=== PATIENT | female | born 1930 | race Caucasian/White ===

== ENCOUNTER 2017-08-23 07:50 | Inpatient (IN) ==
[2017-08-23] MEDS ORDERED: LIDOCAINE 1% 20 ML VIAL ONE (10:50)
[2017-08-23] MEDS ORDERED: HEPARIN/NACL 0.9% 2 UNITS/ML 2,000 ML IV ONE (10:50)
[2017-08-23] MEDS ORDERED: diphenhydrAMINE CAP 25 MG CAPSULE ONE (10:58)
[2017-08-23] MEDS ORDERED: ASPIRIN 325 MG TABLET ONE (11:05)
[2017-08-23] MEDS: SODIUM CHLORIDE 0.9% 1,000 ML IV SCH (11:15)
[2017-08-23] MEDS ORDERED: MIDAZOLAM 2 MG/2 ML VIAL ONE (11:22)
[2017-08-23] MEDS ORDERED: HYDROmorphone 2 MG/1 ML VIAL ONE (11:22)
[2017-08-23] MEDS ORDERED: MAGNESIUM SULF RIDER 2 GM in PREMIX 1 EACH IV PRN (11:30)
[2017-08-23] MEDS ORDERED: POTASSIUM CHLORIDE RIDER 10 MEQ in PREMIX 1 EACH IV PRN (11:30)
[2017-08-23] MEDS ORDERED: ASPIRIN 325 MG TABLET PO ONE (11:30)
[2017-08-23] MEDS ORDERED: diphenhydrAMINE CAP 25 MG CAPSULE PO ONE (11:30)
[2017-08-23 11:36] LABS: Basophils % 0.3 % (0.0-0.8); Eosinophils # 0.1 10*3/uL (0.0-0.87); Eosinophils % 0.9 % (0.00-10.9); Hematocrit 19.6 VOL% (35.7-47.0); Immature Granulocytes % 0.6 %; Immature Granulocytes Absolute 0.05 #; Lymphocytes % 12.7 % (21.3-54.2); Mean Corpuscular HGB Conc 28.6 GM/DL (32-36); Mean Corpuscular Hemoglobin 21 PG (27-34); Mean Corpuscular Volume 72.9 FL (87-102); Mean Platelet Volume 9.6 FL (9.6-12.0); Monocytes # 0.7 10*3/uL (0.11-0.8); Monocytes % 8.8 % (1.7-12.7); Neutrophils # 5.9 10*3/uL (1.4-7.4); Neutrophils % 76.7 % (38.7-73.9); Platelet Count 400 T/CUMM (130-400); Red Blood Count 2.69 MC/CUMM (3.8-5.5); Red Cell Distribution Width 20.3 % (9.3-17.3); White Blood Count 7.7 T/CUMM (4-12)
[2017-08-23 11:40] LABS: PT Patient Result 10.7 SECS
[2017-08-23 11:41] LABS: Hemoglobin 5.6 GM/DL (12.0-16.0)
[2017-08-23] MEDS ORDERED: BIVALIRUDIN 250 MG VIAL IV ONE (11:41)
[2017-08-23 11:46] LABS: Calcium 8.3 MG/DL (8.5-10.1); Osmolality,Calculated 258.1 MOS/KG (273-304); Potassium 3.8 MMOL/L (3.5-5.1)
[2017-08-23] MEDS ORDERED: SODIUM CHLORIDE 0.9% 1,000 ML IV PRN (12:04)
[2017-08-23 12:13] LABS: Basophils % 0.3 % (0.0-0.8); Eosinophils # 0.1 10*3/uL (0.0-0.87); Eosinophils % 0.7 % (0.00-10.9); Hematocrit 20.2 VOL% (35.7-47.0); Immature Granulocytes % 0.6 %; Immature Granulocytes Absolute 0.05 #; Lymphocytes # 1.1 10*3/uL (1.4-4.0); Lymphocytes % 12.2 % (21.3-54.2); Mean Corpuscular HGB Conc 28.2 GM/DL (32-36); Mean Corpuscular Hemoglobin 21 PG (27-34); Mean Corpuscular Volume 73.5 FL (87-102); Mean Platelet Volume 9.2 FL (9.6-12.0); Monocytes # 0.7 10*3/uL (0.11-0.8); Monocytes % 8.1 % (1.7-12.7); Neutrophils # 6.7 10*3/uL (1.4-7.4); Neutrophils % 78.1 % (38.7-73.9); Platelet Count 364 T/CUMM (130-400); Red Blood Count 2.75 MC/CUMM (3.8-5.5); Red Cell Distribution Width 20.3 % (9.3-17.3); White Blood Count 8.6 T/CUMM (4-12)
[2017-08-23 12:16] LABS: Hemoglobin 5.7 GM/DL (12.0-16.0)
[2017-08-23 12:19] LABS: Anisocytosis 1+; Hypochromasia 2+
[2017-08-23 12:20] LABS: Ovalocytes Slight; Target Cells Few
[2017-08-23 12:21] LABS: Microcytosis 1+; Platelet Estimate Increased
[2017-08-23] MEDS ORDERED: ONDANSETRON 4 MG/2 ML VIAL IV PRN (12:40)
[2017-08-23] MEDS ORDERED: NITROGLYCERIN SL 0.4 MG TABLET SL PRN (12:43)
[2017-08-23] MEDS: PANTOPRAZOLE 40 MG VIAL IV SCH (16:32)
[2017-08-23 17:00] LABS: Apearance,Urine CLOUDY (Clear); Bilirubin,Urine Negative (Negative); Blood, Urine Small mg/dL (Negative); Glucose,Urine (UA) Negative (Negative); Ketones,Urine 5 mg/dL (Negative); Nitrite,Urine Positive (Negative); Protein,Urine 100 MG/DL; Urine Color Yellow (Yellow); Urine Specific Gravity 1.033 (1.001-1.035); Urine Urobilinogen < 2.0 EU/DL (0.2-1.0); WBC,Urine 338 /HPF (0-6)
[2017-08-23 20:58] LABS: Hematocrit 28.5 VOL% (35.7-47.0); Hemoglobin 8.6 GM/DL (12.0-16.0)
[2017-08-24] MEDS: SODIUM CHLORIDE 0.9% 1,000 ML IV SCH ×2 (04:55→05:25)
[2017-08-24 05:24] LABS: Hematocrit 36.4 VOL% (35.7-47.0); Hemoglobin 11.9 GM/DL (12.0-16.0); Mean Corpuscular HGB Conc 32.7 GM/DL (32-36); Mean Corpuscular Hemoglobin 26 PG (27-34); Mean Corpuscular Volume 78.3 FL (87-102); Mean Platelet Volume 9.7 FL (9.6-12.0); NRBC # 0.17 10*3/uL; Platelet Count 265 T/CUMM (130-400); Red Blood Count 4.65 MC/CUMM (3.8-5.5); Red Cell Distribution Width 19.9 % (9.3-17.3); White Blood Count 9.9 T/CUMM (4-12)
[2017-08-24 07:11] LABS: Osmolality,Calculated 261.7 MOS/KG (273-304); Potassium 3.6 MMOL/L (3.5-5.1)
[2017-08-24] MEDS ORDERED: PRAVASTATIN 40 MG TABLET PO SCH (09:00)
[2017-08-24] MEDS ORDERED: LOSARTAN 50 MG TABLET PO SCH (09:00)
[2017-08-24] MEDS ORDERED: COBAMAMIDE SL SCH (09:00)
[2017-08-24] MEDS ORDERED: CYANOCOBALAMIN SL SCH (09:00)
[2017-08-24] MEDS: PANTOPRAZOLE 40 MG VIAL IV SCH (09:07)
[2017-08-24] MEDS ORDERED: hydrALAZINE 20 MG/1 ML VIAL IV PRN (09:07)
[2017-08-24] MEDS ORDERED: PROPOFOL 200 MG/20 ML VIAL IV ONE ×2 (12:36→13:57)
[2017-08-24] MEDS ORDERED: LIDOCAINE 2% 5 ML VIAL ONE (13:57)
[2017-08-24] MEDS: ZINC PO SCH (15:04)
[2017-08-24] MEDS: VIT C PO SCH (15:04)
[2017-08-24] MEDS: VIT A PO SCH (15:04)
[2017-08-24] MEDS: SACCHAROMYCES BOULARDII 250 MG PO SCH (15:04)
[2017-08-24] MEDS: COPPER PO SCH (15:04)
[2017-08-24] MEDS: VIT E PO SCH (15:04)
[2017-08-24] MEDS: clonazePAM 0.5 MG TABLET PO SCH (16:21)
[2017-08-24] MEDS: LOSARTAN 50 MG TABLET PO SCH (16:29)
[2017-08-24] MEDS: FUROSEMIDE 20 MG TABLET PO SCH (16:30)
[2017-08-24] MEDS: ASCORBIC ACID 500 MG TABLET PO SCH (16:31)
[2017-08-24] MEDS: ISOSORBIDE MONONITRATE 30 MG TABLET PO SCH (16:32)
[2017-08-24] MEDS: COENZYME Q10 100 MG CAPSULE PO SCH (16:33)
[2017-08-24] MEDS: ATORVASTATIN 80 MG TABLET PO SCH (20:32)
[2017-08-25] MEDS: ISOSORBIDE MONONITRATE 30 MG TABLET PO SCH (08:53)
[2017-08-25] MEDS: COENZYME Q10 100 MG CAPSULE PO SCH (08:53)
[2017-08-25] MEDS: ASPIRIN EC 81 MG TABLET PO SCH (08:53)
[2017-08-25] MEDS: LOSARTAN 50 MG TABLET PO SCH (08:53)
[2017-08-25] MEDS: clonazePAM 0.5 MG TABLET PO SCH (08:53)
[2017-08-25] MEDS: CLOPIDOGREL 75 MG TABLET PO SCH (08:54)
[2017-08-25] MEDS: PANTOPRAZOLE 40 MG VIAL IV SCH (08:54)
[2017-08-25] MEDS: FUROSEMIDE 20 MG TABLET PO SCH (08:54)
[2017-08-25] MEDS: ASCORBIC ACID 500 MG TABLET PO SCH (08:54)
[2017-08-25 09:01] LABS: Basophils % 0.3 % (0.0-0.8); Eosinophils # 0.1 10*3/uL (0.0-0.87); Eosinophils % 1.1 % (0.00-10.9); Hematocrit 34.4 VOL% (35.7-47.0); Immature Granulocytes % 0.4 %; Immature Granulocytes Absolute 0.04 #; Lymphocytes # 1.1 10*3/uL (1.4-4.0); Lymphocytes % 10.2 % (21.3-54.2); Mean Corpuscular Hemoglobin 25 PG (27-34); Mean Corpuscular Volume 79.3 FL (87-102); Mean Platelet Volume 9.2 FL (9.6-12.0); Monocytes # 0.8 10*3/uL (0.11-0.8); Monocytes % 8.1 % (1.7-12.7); Neutrophils # 8.3 10*3/uL (1.4-7.4); Neutrophils % 79.9 % (38.7-73.9); Platelet Count 294 T/CUMM (130-400); Red Blood Count 4.34 MC/CUMM (3.8-5.5); Red Cell Distribution Width 21.1 % (9.3-17.3); White Blood Count 10.3 T/CUMM (4-12)
[2017-08-25 09:25] LABS: Calcium 7.9 MG/DL (8.5-10.1); Osmolality,Calculated 266.2 MOS/KG (273-304); Potassium 3.4 MMOL/L (3.5-5.1)
[2017-08-25] MEDS: CIPROFLOXACIN 250 MG TABLET PO SCH ×2 (10:44→22:13)
[2017-08-25] MEDS: MUPIROCIN 2% OINT 22 GM TUBE TOP SCH ×3 (15:43→22:13)
[2017-08-25] MEDS: ATORVASTATIN 80 MG TABLET PO SCH (22:13)
[2017-08-26 04:13] LABS: Calcium 8.1 MG/DL (8.5-10.1); Potassium 3.4 MMOL/L (3.5-5.1)
[2017-08-26 04:21] LABS: Basophils % 0.6 % (0.0-0.8); Eosinophils # 0.2 10*3/uL (0.0-0.87); Eosinophils % 3.2 % (0.00-10.9); Hematocrit 31.1 VOL% (35.7-47.0); Hemoglobin 9.8 GM/DL (12.0-16.0); Immature Granulocytes % 0.3 %; Immature Granulocytes Absolute 0.02 #; Lymphocytes # 1.2 10*3/uL (1.4-4.0); Lymphocytes % 16.7 % (21.3-54.2); Mean Corpuscular HGB Conc 31.5 GM/DL (32-36); Mean Corpuscular Hemoglobin 25 PG (27-34); Mean Corpuscular Volume 78.7 FL (87-102); Monocytes # 0.7 10*3/uL (0.11-0.8); Monocytes % 10.2 % (1.7-12.7); Platelet Count 281 T/CUMM (130-400); Red Blood Count 3.95 MC/CUMM (3.8-5.5); Red Cell Distribution Width 21.5 % (9.3-17.3); White Blood Count 7.3 T/CUMM (4-12)
[2017-08-26] MEDS: LOSARTAN 50 MG TABLET PO SCH (09:09)
[2017-08-26] MEDS: ISOSORBIDE MONONITRATE 30 MG TABLET PO SCH (09:10)
[2017-08-26] MEDS: ASPIRIN EC 81 MG TABLET PO SCH (09:10)
[2017-08-26] MEDS: COENZYME Q10 100 MG CAPSULE PO SCH (09:10)
[2017-08-26] MEDS: CIPROFLOXACIN 250 MG TABLET PO SCH ×2 (09:10→21:16)
[2017-08-26] MEDS: CLOPIDOGREL 75 MG TABLET PO SCH (09:10)
[2017-08-26] MEDS: PANTOPRAZOLE 40 MG VIAL IV SCH (09:10)
[2017-08-26] MEDS: FUROSEMIDE 20 MG TABLET PO SCH (09:10)
[2017-08-26] MEDS: clonazePAM 0.5 MG TABLET PO SCH (09:10)
[2017-08-26] MEDS: ASCORBIC ACID 500 MG TABLET PO SCH (09:10)
[2017-08-26] MEDS: MUPIROCIN 2% OINT 22 GM TUBE TOP SCH ×3 (09:13→21:17)
[2017-08-26] MEDS: COPPER PO SCH (11:48)
[2017-08-26] MEDS: VIT A PO SCH (11:48)
[2017-08-26] MEDS: VIT E PO SCH (11:48)
[2017-08-26] MEDS: ZINC PO SCH (11:48)
[2017-08-26] MEDS: VIT C PO SCH (11:48)
[2017-08-26] MEDS: SACCHAROMYCES BOULARDII 250 MG PO SCH (11:48)
[2017-08-26] MEDS: POTASSIUM CHLORIDE 20 MEQ TABLET PO SCH ×2 (11:56→21:16)
[2017-08-26] MEDS: ATORVASTATIN 80 MG TABLET PO SCH (21:16)
[2017-08-27 06:23] LABS: Basophils % 0.6 % (0.0-0.8); Eosinophils # 0.4 10*3/uL (0.0-0.87); Eosinophils % 5.1 % (0.00-10.9); Hematocrit 31.4 VOL% (35.7-47.0); Hemoglobin 9.7 GM/DL (12.0-16.0); Immature Granulocytes % 0.3 %; Immature Granulocytes Absolute 0.02 #; Lymphocytes % 15.3 % (21.3-54.2); Mean Corpuscular HGB Conc 30.9 GM/DL (32-36); Mean Corpuscular Hemoglobin 25 PG (27-34); Mean Corpuscular Volume 80.1 FL (87-102); Mean Platelet Volume 9.7 FL (9.6-12.0); Monocytes # 0.7 10*3/uL (0.11-0.8); Monocytes % 10.4 % (1.7-12.7); Neutrophils # 4.7 10*3/uL (1.4-7.4); Neutrophils % 68.3 % (38.7-73.9); Platelet Count 276 T/CUMM (130-400); Red Blood Count 3.92 MC/CUMM (3.8-5.5); Red Cell Distribution Width 21.8 % (9.3-17.3); White Blood Count 6.8 T/CUMM (4-12)
[2017-08-27 06:48] LABS: Calcium 8.2 MG/DL (8.5-10.1); Osmolality,Calculated 271.1 MOS/KG (273-304); Potassium 3.9 MMOL/L (3.5-5.1)
[2017-08-27] MEDS: ISOSORBIDE MONONITRATE 30 MG TABLET PO SCH (08:35)
[2017-08-27] MEDS: FUROSEMIDE 20 MG TABLET PO SCH (08:35)
[2017-08-27] MEDS: clonazePAM 0.5 MG TABLET PO SCH (08:35)
[2017-08-27] MEDS: POTASSIUM CHLORIDE 20 MEQ TABLET PO SCH ×2 (08:35→22:24)
[2017-08-27] MEDS: MUPIROCIN 2% OINT 22 GM TUBE TOP SCH ×2 (08:35→14:15)
[2017-08-27] MEDS: CIPROFLOXACIN 250 MG TABLET PO SCH ×2 (08:35→22:25)
[2017-08-27] MEDS: ASCORBIC ACID 500 MG TABLET PO SCH (08:35)
[2017-08-27] MEDS: LOSARTAN 50 MG TABLET PO SCH (08:35)
[2017-08-27] MEDS: CLOPIDOGREL 75 MG TABLET PO SCH (08:35)
[2017-08-27] MEDS: VIT E PO SCH (08:36)
[2017-08-27] MEDS: VIT A PO SCH (08:36)
[2017-08-27] MEDS: ZINC PO SCH (08:36)
[2017-08-27] MEDS: PANTOPRAZOLE 40 MG VIAL IV SCH (08:36)
[2017-08-27] MEDS: SACCHAROMYCES BOULARDII 250 MG PO SCH (08:36)
[2017-08-27] MEDS: VIT C PO SCH (08:36)
[2017-08-27] MEDS: ASPIRIN EC 81 MG TABLET PO SCH (08:36)
[2017-08-27] MEDS: COPPER PO SCH (08:36)
[2017-08-27] MEDS: COENZYME Q10 100 MG CAPSULE PO SCH (08:36)
[2017-08-27] MEDS ORDERED: MAGNESIUM SULF RIDER 2 GM in PREMIX 1 EACH IV PRN (17:18)
[2017-08-27] MEDS ORDERED: DIAZEPAM 5 MG TABLET PO ONE (17:18)
[2017-08-27] MEDS ORDERED: diphenhydrAMINE CAP 25 MG CAPSULE PO ONE (17:18)
[2017-08-27] MEDS ORDERED: POTASSIUM CHLORIDE RIDER 10 MEQ in PREMIX 1 EACH IV PRN (17:18)
[2017-08-27] MEDS: ATORVASTATIN 80 MG TABLET PO SCH (22:25)
[2017-08-27] MEDS: CARVEDILOL 3.125 MG TABLET PO SCH (22:31)
[2017-08-28 04:42] LABS: Basophils % 0.8 % (0.0-0.8); Eosinophils # 0.4 10*3/uL (0.0-0.87); Eosinophils % 7.4 % (0.00-10.9); Hematocrit 29.8 VOL% (35.7-47.0); Immature Granulocytes % 0.2 %; Immature Granulocytes Absolute 0.01 #; Lymphocytes % 18.3 % (21.3-54.2); Mean Corpuscular HGB Conc 30.2 GM/DL (32-36); Mean Corpuscular Hemoglobin 25 PG (27-34); Mean Corpuscular Volume 83.5 FL (87-102); Mean Platelet Volume 9.8 FL (9.6-12.0); Monocytes # 0.6 10*3/uL (0.11-0.8); Monocytes % 10.9 % (1.7-12.7); Neutrophils # 3.3 10*3/uL (1.4-7.4); Neutrophils % 62.4 % (38.7-73.9); Platelet Count 241 T/CUMM (130-400); Red Blood Count 3.57 MC/CUMM (3.8-5.5); Red Cell Distribution Width 21.7 % (9.3-17.3); White Blood Count 5.3 T/CUMM (4-12)
[2017-08-28 05:15] LABS: Calcium 7.8 MG/DL (8.5-10.1); Osmolality,Calculated 272.1 MOS/KG (273-304); Potassium 4.4 MMOL/L (3.5-5.1)
[2017-08-28] MEDS: MUPIROCIN 2% OINT 22 GM TUBE TOP SCH ×3 (05:32→15:15)
[2017-08-28] MEDS: SODIUM CHLORIDE 0.45% 1,000 ML IV SCH ×2 (07:35→17:41)
[2017-08-28] MEDS ORDERED: DIAZEPAM 5 MG TABLET ONE ×2 (08:01→08:40)
[2017-08-28] MEDS ORDERED: diphenhydrAMINE CAP 25 MG CAPSULE ONE (08:02)
[2017-08-28] MEDS: ASPIRIN EC 81 MG TABLET PO SCH (08:38)
[2017-08-28] MEDS: ISOSORBIDE MONONITRATE 30 MG TABLET PO SCH (08:38)
[2017-08-28] MEDS: CLOPIDOGREL 75 MG TABLET PO SCH (08:39)
[2017-08-28] MEDS: CARVEDILOL 3.125 MG TABLET PO SCH ×2 (08:39→21:23)
[2017-08-28] MEDS ORDERED: diphenhydrAMINE CAP 50 MG CAPSULE ONE (08:40)
[2017-08-28] MEDS: PANTOPRAZOLE 40 MG VIAL IV SCH (08:44)
[2017-08-28] MEDS ORDERED: LIDOCAINE 1% 20 ML VIAL ONE (09:46)
[2017-08-28] MEDS ORDERED: HEPARIN/NACL 0.9% 2 UNITS/ML 2,000 ML IV ONE (09:46)
[2017-08-28] MEDS ORDERED: HYDROmorphone 2 MG/1 ML VIAL ONE (10:12)
[2017-08-28] MEDS ORDERED: MIDAZOLAM 2 MG/2 ML VIAL ONE (10:13)
[2017-08-28] MEDS ORDERED: BIVALIRUDIN 250 MG VIAL IV ONE (10:20)
[2017-08-28] MEDS: clonazePAM 0.5 MG TABLET PO SCH (15:12)
[2017-08-28] MEDS: POTASSIUM CHLORIDE 20 MEQ TABLET PO SCH ×2 (15:12→21:24)
[2017-08-28] MEDS: ASCORBIC ACID 500 MG TABLET PO SCH (15:12)
[2017-08-28] MEDS: FUROSEMIDE 20 MG TABLET PO SCH (15:12)
[2017-08-28] MEDS: COENZYME Q10 100 MG CAPSULE PO SCH (15:13)
[2017-08-28] MEDS: CIPROFLOXACIN 250 MG TABLET PO SCH ×2 (15:13→21:23)
[2017-08-28] MEDS: ATORVASTATIN 80 MG TABLET PO SCH (21:23)
[2017-08-29] MEDS: MUPIROCIN 2% OINT 22 GM TUBE TOP SCH ×4 (00:57→21:54)
[2017-08-29] MEDS: SODIUM CHLORIDE 0.45% 1,000 ML IV SCH ×3 (00:58→19:48)
[2017-08-29 05:05] LABS: Basophils # 0.1 10*3/uL (0.0-0.2); Basophils % 1.1 % (0.0-0.8); Eosinophils # 0.5 10*3/uL (0.0-0.87); Eosinophils % 6.6 % (0.00-10.9); Hematocrit 33.9 VOL% (35.7-47.0); Hemoglobin 10.3 GM/DL (12.0-16.0); Immature Granulocytes % 0.3 %; Immature Granulocytes Absolute 0.02 #; Lymphocytes # 1.4 10*3/uL (1.4-4.0); Lymphocytes % 18.4 % (21.3-54.2); Mean Corpuscular HGB Conc 30.4 GM/DL (32-36); Mean Corpuscular Hemoglobin 25 PG (27-34); Mean Corpuscular Volume 83.3 FL (87-102); Mean Platelet Volume 10.3 FL (9.6-12.0); Monocytes # 0.8 10*3/uL (0.11-0.8); Monocytes % 10.7 % (1.7-12.7); Neutrophils # 4.8 10*3/uL (1.4-7.4); Neutrophils % 62.9 % (38.7-73.9); Platelet Count 296 T/CUMM (130-400); Red Blood Count 4.07 MC/CUMM (3.8-5.5); Red Cell Distribution Width 21.7 % (9.3-17.3); White Blood Count 7.6 T/CUMM (4-12)
[2017-08-29 05:24] LABS: Calcium 7.9 MG/DL (8.5-10.1); Osmolality,Calculated 261.8 MOS/KG (273-304); Potassium 4.8 MMOL/L (3.5-5.1)
[2017-08-29 05:25] LABS: CKMB % 11.8 %
[2017-08-29 05:26] LABS: Troponin I Only 3.13 NG/ML (0.00-0.045)
[2017-08-29] MEDS: CLOPIDOGREL 75 MG TABLET PO SCH (09:18)
[2017-08-29] MEDS: CARVEDILOL 3.125 MG TABLET PO SCH ×2 (09:18→21:54)
[2017-08-29] MEDS: FUROSEMIDE 20 MG TABLET PO SCH (09:18)
[2017-08-29] MEDS: COENZYME Q10 100 MG CAPSULE PO SCH (09:18)
[2017-08-29] MEDS: POTASSIUM CHLORIDE 20 MEQ TABLET PO SCH ×2 (09:18→21:54)
[2017-08-29] MEDS: CIPROFLOXACIN 250 MG TABLET PO SCH ×2 (09:18→21:54)
[2017-08-29] MEDS: clonazePAM 0.5 MG TABLET PO SCH (09:18)
[2017-08-29] MEDS: ASCORBIC ACID 500 MG TABLET PO SCH (09:18)
[2017-08-29] MEDS: PANTOPRAZOLE 40 MG VIAL IV SCH (09:19)
[2017-08-29] MEDS: ASPIRIN EC 81 MG TABLET PO SCH (09:19)
[2017-08-29] MEDS: ISOSORBIDE MONONITRATE 30 MG TABLET PO SCH (09:25)
[2017-08-29] MEDS: LOSARTAN 50 MG TABLET PO SCH (09:25)
[2017-08-29] MEDS: ATORVASTATIN 80 MG TABLET PO SCH (21:54)
[2017-08-30 06:13] LABS: Basophils % 0.7 % (0.0-0.8); Eosinophils # 0.4 10*3/uL (0.0-0.87); Eosinophils % 6.2 % (0.00-10.9); Hematocrit 27.5 VOL% (35.7-47.0); Hemoglobin 8.5 GM/DL (12.0-16.0); Immature Granulocytes % 0.3 %; Immature Granulocytes Absolute 0.02 #; Lymphocytes % 16.2 % (21.3-54.2); Mean Corpuscular HGB Conc 30.9 GM/DL (32-36); Mean Corpuscular Hemoglobin 25 PG (27-34); Mean Corpuscular Volume 81.4 FL (87-102); Mean Platelet Volume 10.4 FL (9.6-12.0); Monocytes # 0.9 10*3/uL (0.11-0.8); Monocytes % 13.9 % (1.7-12.7); Neutrophils # 3.8 10*3/uL (1.4-7.4); Neutrophils % 62.7 % (38.7-73.9); Platelet Count 253 T/CUMM (130-400); Red Blood Count 3.38 MC/CUMM (3.8-5.5); Red Cell Distribution Width 21.6 % (9.3-17.3); White Blood Count 6.1 T/CUMM (4-12)
[2017-08-30 06:28] LABS: Calcium 7.7 MG/DL (8.5-10.1); Osmolality,Calculated 257.2 MOS/KG (273-304); Potassium 4.6 MMOL/L (3.5-5.1)
[2017-08-30 06:32] LABS: Hypochromasia 1+
[2017-08-30 06:33] LABS: Microcytosis 1+; Ovalocytes Slight; Platelet Estimate Normal
[2017-08-30] MEDS: LOSARTAN 50 MG TABLET PO SCH (09:04)
[2017-08-30] MEDS: POTASSIUM CHLORIDE 20 MEQ TABLET PO SCH ×2 (09:05→20:53)
[2017-08-30] MEDS: ASPIRIN EC 81 MG TABLET PO SCH (09:05)
[2017-08-30] MEDS: clonazePAM 0.5 MG TABLET PO SCH (09:05)
[2017-08-30] MEDS: CARVEDILOL 3.125 MG TABLET PO SCH ×2 (09:05→20:53)
[2017-08-30] MEDS: FUROSEMIDE 20 MG TABLET PO SCH (09:05)
[2017-08-30] MEDS: MUPIROCIN 2% OINT 22 GM TUBE TOP SCH ×3 (09:05→17:47)
[2017-08-30] MEDS: PANTOPRAZOLE 40 MG VIAL IV SCH (09:05)
[2017-08-30] MEDS: COENZYME Q10 100 MG CAPSULE PO SCH (09:05)
[2017-08-30] MEDS: ASCORBIC ACID 500 MG TABLET PO SCH (09:05)
[2017-08-30] MEDS: CLOPIDOGREL 75 MG TABLET PO SCH (09:05)
[2017-08-30] MEDS: CIPROFLOXACIN 250 MG TABLET PO SCH ×2 (09:05→20:53)
[2017-08-30] MEDS: ISOSORBIDE MONONITRATE 30 MG TABLET PO SCH (09:05)
[2017-08-30 19:46] LABS: Basophils % 0.6 % (0.0-0.8); Eosinophils # 0.4 10*3/uL (0.0-0.87); Eosinophils % 5.8 % (0.00-10.9); Hematocrit 27.1 VOL% (35.7-47.0); Hemoglobin 8.1 GM/DL (12.0-16.0); Immature Granulocytes % 0.3 %; Immature Granulocytes Absolute 0.02 #; Lymphocytes % 15.6 % (21.3-54.2); Mean Corpuscular HGB Conc 29.9 GM/DL (32-36); Mean Corpuscular Hemoglobin 25 PG (27-34); Mean Corpuscular Volume 83.6 FL (87-102); Monocytes # 0.9 10*3/uL (0.11-0.8); Monocytes % 14.5 % (1.7-12.7); Neutrophils # 3.9 10*3/uL (1.4-7.4); Neutrophils % 63.2 % (38.7-73.9); Platelet Count 260 T/CUMM (130-400); Red Blood Count 3.24 MC/CUMM (3.8-5.5); Red Cell Distribution Width 21.4 % (9.3-17.3); White Blood Count 6.2 T/CUMM (4-12)
[2017-08-30] MEDS: ATORVASTATIN 80 MG TABLET PO SCH (20:53)
[2017-08-30] MEDS: PANTOPRAZOLE 40 MG TABLET PO SCH (20:53)
[2017-08-31 00:10] LABS: Calcium 7.2 MG/DL (8.5-10.1); Osmolality,Calculated 262.9 MOS/KG (273-304); Potassium 4.6 MMOL/L (3.5-5.1)
[2017-08-31] MEDS ORDERED: SODIUM CHLORIDE 0.9% 1,000 ML IV SCH (00:30)
[2017-08-31 02:46] LABS: Hematocrit 26.4 VOL% (35.7-47.0); Hemoglobin 8.1 GM/DL (12.0-16.0)
[2017-08-31 05:35] LABS: Basophils % 0.7 % (0.0-0.8); Eosinophils # 0.3 10*3/uL (0.0-0.87); Eosinophils % 5.2 % (0.00-10.9); Hematocrit 25.5 VOL% (35.7-47.0); Immature Granulocytes % 0.3 %; Immature Granulocytes Absolute 0.02 #; Lymphocytes % 17.6 % (21.3-54.2); Mean Corpuscular HGB Conc 31.4 GM/DL (32-36); Mean Corpuscular Hemoglobin 25 PG (27-34); Mean Corpuscular Volume 80.7 FL (87-102); Monocytes % 17.1 % (1.7-12.7); Neutrophils # 3.4 10*3/uL (1.4-7.4); Neutrophils % 59.1 % (38.7-73.9); Platelet Count 267 T/CUMM (130-400); Red Blood Count 3.16 MC/CUMM (3.8-5.5); Red Cell Distribution Width 21.5 % (9.3-17.3); White Blood Count 5.8 T/CUMM (4-12)
[2017-08-31 05:59] LABS: Eosinophils 6 % (0-10); Lymphocytes 15 % (20-55); Segmented Neutrophils 69 % (50-85); Total Cells Counted 100
[2017-08-31 06:00] LABS: Hypochromasia 2+; Microcytosis 2+
[2017-08-31] MEDS ORDERED: FAMOTIDINE 20 MG TABLET PO ONE (06:00)
[2017-08-31 06:01] LABS: Elliptocytes Few; Platelet Estimate Normal
[2017-08-31 06:08] LABS: Calcium 7.5 MG/DL (8.5-10.1); Osmolality,Calculated 263.8 MOS/KG (273-304); Potassium 4.6 MMOL/L (3.5-5.1)
[2017-08-31] MEDS ORDERED: HEPARIN 5,000 UNIT/1 ML VIAL ONE (06:22)
[2017-08-31] MEDS ORDERED: TISSUE ADHESIVE 1 EACH APPLICATOR TOP ONE ×2 (06:22→11:06)
[2017-08-31] MEDS ORDERED: LIDOCAINE 1% 5 ML VIAL ONE (06:22)
[2017-08-31] MEDS ORDERED: METOCLOPRAMIDE 10 MG/2 ML VIAL IV ONE (07:57)
[2017-08-31] MEDS ORDERED: VANCOMYCIN INJ 500 MG in SODIUM CHLORIDE 0.9% 100 ML IV ONE (08:18)
[2017-08-31] MEDS ORDERED: HYDROmorphone 2 MG/1 ML VIAL IV PRN ×2 (11:28)
[2017-08-31] MEDS ORDERED: oxyCODONE/ACETAMINOPHEN 5-325 MG TABLET PO PRN ×2 (11:28)
[2017-08-31] MEDS ORDERED: GLUCAGON 1 MG VIAL IM PRN (11:28)
[2017-08-31] MEDS ORDERED: ONDANSETRON 4 MG/2 ML VIAL IV PRN (11:28)
[2017-08-31] MEDS ORDERED: DEXTROSE 50% 25 GM/50 ML VIAL IV PRN (11:28)
[2017-08-31] MEDS ORDERED: NALOXONE 0.4 MG/ML VIAL IV PRN (11:28)
[2017-08-31] MEDS ORDERED: PROMETHAZINE 25 MG/1 ML VIAL IM PRN (11:28)
[2017-08-31] MEDS ORDERED: PHENYLEPHRINE DRIP 40 MG/250 ML PREMIX IV SCH (11:30)
[2017-08-31] MEDS ORDERED: NITROPRUSSIDE 100 MG in DEXTROSE 5% 250 ML IV SCH (11:30)
[2017-08-31] MEDS ORDERED: fentaNYL 100 MCG/2 ML VIAL ONE (12:36)
[2017-08-31] MEDS ORDERED: SEVOFLURANE 1 UNIT/15 MINUTE INH ONE (12:37)
[2017-08-31] MEDS ORDERED: ROCURONIUM 100 MG/10 ML VIAL IV ONE (12:39)
[2017-08-31] MEDS ORDERED: NEOSTIGMINE 10 MG/10 ML VIAL ONE (12:39)
[2017-08-31] MEDS ORDERED: SODIUM CHLORIDE 0.9% 250 ML IV ONE (12:39)
[2017-08-31] MEDS ORDERED: ONDANSETRON 4 MG/2 ML VIAL ONE (12:39)
[2017-08-31] MEDS ORDERED: GLYCOPYRROLATE 0.4 MG/2 ML VIAL ONE (12:39)
[2017-08-31] MEDS ORDERED: ETOMIDATE 40 MG/20 ML VIAL IV ONE (12:39)
[2017-08-31] MEDS ORDERED: SODIUM CHLORIDE 0.9% 1,000 ML IV ONE (12:39)
[2017-08-31] MEDS ORDERED: PHENYLEPHRINE 1 MG/10 ML SYRINGE IV ONE (12:39)
[2017-08-31] MEDS ORDERED: ACETAMINOPHEN 1,000 MG/100 ML VIAL IV ONE (12:39)
[2017-08-31] MEDS ORDERED: PHENYLEPHRINE 10 MG/1 ML VIAL IV ONE (12:39)
[2017-08-31] MEDS ORDERED: HEPARIN 10,000 UNIT/10 ML VIAL ONE (12:40)
[2017-08-31] MEDS ORDERED: PROTAMINE SULFATE 50 MG/5 ML VIAL IV ONE (12:40)
[2017-08-31] MEDS ORDERED: HEPARIN/NACL 0.9% 2 UNITS/ML 500 ML IV ONE (12:40)
[2017-08-31] MEDS: CIPROFLOXACIN 250 MG TABLET PO SCH ×2 (13:38→21:17)
[2017-08-31] MEDS: COENZYME Q10 100 MG CAPSULE PO SCH (13:38)
[2017-08-31] MEDS: MUPIROCIN 2% OINT 22 GM TUBE TOP SCH ×3 (13:38→21:17)
[2017-08-31] MEDS: ASPIRIN EC 81 MG TABLET PO SCH (13:38)
[2017-08-31] MEDS: CARVEDILOL 3.125 MG TABLET PO SCH ×2 (13:38→21:17)
[2017-08-31] MEDS: FUROSEMIDE 20 MG TABLET PO SCH (13:39)
[2017-08-31] MEDS: ISOSORBIDE MONONITRATE 30 MG TABLET PO SCH (13:39)
[2017-08-31] MEDS: clonazePAM 0.5 MG TABLET PO SCH (13:39)
[2017-08-31] MEDS: PANTOPRAZOLE 40 MG TABLET PO SCH ×2 (13:39→21:17)
[2017-08-31] MEDS: POTASSIUM CHLORIDE 20 MEQ TABLET PO SCH ×2 (13:39→21:17)
[2017-08-31] MEDS: CLOPIDOGREL 75 MG TABLET PO SCH (13:39)
[2017-08-31] MEDS: LOSARTAN 50 MG TABLET PO SCH (13:39)
[2017-08-31] MEDS: ASCORBIC ACID 500 MG TABLET PO SCH (13:40)
[2017-08-31] MEDS: LACTATED RINGERS 1,000 ML IV SCH ×2 (13:59→15:01)
[2017-08-31] MEDS ORDERED: LACTATED RINGERS 1,000 ML IV SCH (15:00)
[2017-08-31] MEDS: ATORVASTATIN 80 MG TABLET PO SCH (21:17)
[2017-09-01 03:55] LABS: Basophils % 0.5 % (0.0-0.8); Eosinophils # 0.2 10*3/uL (0.0-0.87); Eosinophils % 2.2 % (0.00-10.9); Immature Granulocytes % 0.4 %; Immature Granulocytes Absolute 0.03 #; Lymphocytes # 0.8 10*3/uL (1.4-4.0); Lymphocytes % 9.1 % (21.3-54.2); Mean Corpuscular Hemoglobin 26 PG (27-34); Mean Platelet Volume 9.9 FL (9.6-12.0); Monocytes # 0.9 10*3/uL (0.11-0.8); Monocytes % 10.4 % (1.7-12.7); Neutrophils # 6.6 10*3/uL (1.4-7.4); Neutrophils % 77.4 % (38.7-73.9); Platelet Count 263 T/CUMM (130-400); Red Blood Count 3.41 MC/CUMM (3.8-5.5); Red Cell Distribution Width 20.1 % (9.3-17.3); White Blood Count 8.5 T/CUMM (4-12)
[2017-09-01 05:12] LABS: Calcium 7.8 MG/DL (8.5-10.1); Osmolality,Calculated 267.5 MOS/KG (273-304); Potassium 4.9 MMOL/L (3.5-5.1)
[2017-09-01] MEDS: LOSARTAN 50 MG TABLET PO SCH (09:39)
[2017-09-01] MEDS: COENZYME Q10 100 MG CAPSULE PO SCH (09:39)
[2017-09-01] MEDS: CLOPIDOGREL 75 MG TABLET PO SCH (09:39)
[2017-09-01] MEDS: CIPROFLOXACIN 250 MG TABLET PO SCH ×2 (09:39→21:34)
[2017-09-01] MEDS: FUROSEMIDE 20 MG TABLET PO SCH (09:39)
[2017-09-01] MEDS: CARVEDILOL 3.125 MG TABLET PO SCH ×2 (09:40→21:34)
[2017-09-01] MEDS: MUPIROCIN 2% OINT 22 GM TUBE TOP SCH (09:40)
[2017-09-01] MEDS: PANTOPRAZOLE 40 MG TABLET PO SCH ×2 (09:40→21:34)
[2017-09-01] MEDS: ISOSORBIDE MONONITRATE 30 MG TABLET PO SCH (09:40)
[2017-09-01] MEDS: ASCORBIC ACID 500 MG TABLET PO SCH (09:40)
[2017-09-01] MEDS: ASPIRIN EC 81 MG TABLET PO SCH (09:40)
[2017-09-01] MEDS: POTASSIUM CHLORIDE 20 MEQ TABLET PO SCH ×2 (09:40→21:34)
[2017-09-01] MEDS: ATORVASTATIN 80 MG TABLET PO SCH (21:34)
[2017-09-02 06:30] LABS: Basophils % 0.5 % (0.0-0.8); Eosinophils # 0.2 10*3/uL (0.0-0.87); Hematocrit 24.8 VOL% (35.7-47.0); Hemoglobin 7.6 GM/DL (12.0-16.0); Immature Granulocytes % 0.4 %; Immature Granulocytes Absolute 0.03 #; Lymphocytes # 1.1 10*3/uL (1.4-4.0); Lymphocytes % 13.5 % (21.3-54.2); Mean Corpuscular HGB Conc 30.6 GM/DL (32-36); Mean Corpuscular Hemoglobin 26 PG (27-34); Mean Corpuscular Volume 86.1 FL (87-102); Mean Platelet Volume 10.4 FL (9.6-12.0); Monocytes # 1.3 10*3/uL (0.11-0.8); Monocytes % 15.9 % (1.7-12.7); Neutrophils # 5.4 10*3/uL (1.4-7.4); Neutrophils % 66.7 % (38.7-73.9); Platelet Count 285 T/CUMM (130-400); Red Blood Count 2.88 MC/CUMM (3.8-5.5); Red Cell Distribution Width 21.1 % (9.3-17.3)
[2017-09-02 07:02] LABS: Calcium 7.9 MG/DL (8.5-10.1); Osmolality,Calculated 268.4 MOS/KG (273-304); Potassium 4.7 MMOL/L (3.5-5.1)
[2017-09-02 07:41] LABS: Elliptocytes Few; Eosinophils 2 % (0-10); Howell-Jolly Bodies Few; Hypochromasia 2+; Lymphocytes 10 % (20-55); Microcytosis Slight; Platelet Estimate Adequate; Polychromasia Slight; Segmented Neutrophils 81 % (50-85); Target Cells Slight; Total Cells Counted 100
[2017-09-02] MEDS: POTASSIUM CHLORIDE 20 MEQ TABLET PO SCH ×2 (08:42→21:06)
[2017-09-02] MEDS: CLOPIDOGREL 75 MG TABLET PO SCH (08:43)
[2017-09-02] MEDS: FUROSEMIDE 20 MG TABLET PO SCH (08:43)
[2017-09-02] MEDS: ASPIRIN EC 81 MG TABLET PO SCH (08:43)
[2017-09-02] MEDS: CARVEDILOL 3.125 MG TABLET PO SCH ×2 (08:43→21:03)
[2017-09-02] MEDS: CIPROFLOXACIN 250 MG TABLET PO SCH ×2 (08:43→21:03)
[2017-09-02] MEDS: PANTOPRAZOLE 40 MG TABLET PO SCH ×2 (08:43→21:03)
[2017-09-02] MEDS: ISOSORBIDE MONONITRATE 30 MG TABLET PO SCH (08:43)
[2017-09-02] MEDS: LOSARTAN 50 MG TABLET PO SCH (08:43)
[2017-09-02 14:31] LABS: Hemoglobin 7.8 GM/DL (12.0-16.0)
[2017-09-02] MEDS: ATORVASTATIN 80 MG TABLET PO SCH (21:05)
[2017-09-03 05:02] LABS: Basophils % 0.4 % (0.0-0.8); Eosinophils # 0.3 10*3/uL (0.0-0.87); Eosinophils % 3.3 % (0.00-10.9); Hematocrit 24.2 VOL% (35.7-47.0); Hemoglobin 7.7 GM/DL (12.0-16.0); Immature Granulocytes % 0.5 %; Immature Granulocytes Absolute 0.04 #; Lymphocytes # 1.3 10*3/uL (1.4-4.0); Lymphocytes % 16.9 % (21.3-54.2); Mean Corpuscular HGB Conc 31.8 GM/DL (32-36); Mean Corpuscular Hemoglobin 27 PG (27-34); Mean Corpuscular Volume 83.4 FL (87-102); Mean Platelet Volume 10.4 FL (9.6-12.0); Monocytes # 0.9 10*3/uL (0.11-0.8); Monocytes % 11.8 % (1.7-12.7); Neutrophils # 5.3 10*3/uL (1.4-7.4); Neutrophils % 67.1 % (38.7-73.9); Platelet Count 310 T/CUMM (130-400); Red Cell Distribution Width 21.6 % (9.3-17.3); White Blood Count 7.8 T/CUMM (4-12)
[2017-09-03 05:28] LABS: Giant Platelets Few; Hypochromasia 1+; Microcytosis Slight; Platelet Estimate Adequate
[2017-09-03 06:02] LABS: Calcium 7.7 MG/DL (8.5-10.1); Osmolality,Calculated 261.8 MOS/KG (273-304); Potassium 4.4 MMOL/L (3.5-5.1)
[2017-09-03] MEDS: ASPIRIN EC 81 MG TABLET PO SCH (09:48)
[2017-09-03] MEDS: CIPROFLOXACIN 250 MG TABLET PO SCH ×2 (09:48→20:10)
[2017-09-03] MEDS: LOSARTAN 50 MG TABLET PO SCH (09:48)
[2017-09-03] MEDS: POTASSIUM CHLORIDE 20 MEQ TABLET PO SCH ×2 (09:48→20:10)
[2017-09-03] MEDS: CLOPIDOGREL 75 MG TABLET PO SCH (09:48)
[2017-09-03] MEDS: FUROSEMIDE 20 MG TABLET PO SCH ×2 (09:49→11:43)
[2017-09-03] MEDS: PANTOPRAZOLE 40 MG TABLET PO SCH ×2 (09:49→20:10)
[2017-09-03] MEDS: CARVEDILOL 3.125 MG TABLET PO SCH ×2 (09:49→20:10)
[2017-09-03] MEDS: ISOSORBIDE MONONITRATE 30 MG TABLET PO SCH (09:49)
[2017-09-03] MEDS ORDERED: SODIUM CHLORIDE 0.9% 1,000 ML IV PRN (10:02)
[2017-09-03] MEDS: ATORVASTATIN 80 MG TABLET PO SCH (20:10)
[2017-09-03 21:31] LABS: Hematocrit 32.9 VOL% (35.7-47.0); Hemoglobin 10.8 GM/DL (12.0-16.0)
[2017-09-04 05:00] LABS: Basophils % 0.5 % (0.0-0.8); Eosinophils # 0.3 10*3/uL (0.0-0.87); Eosinophils % 3.8 % (0.00-10.9); Hemoglobin 10.2 GM/DL (12.0-16.0); Immature Granulocytes % 0.4 %; Immature Granulocytes Absolute 0.03 #; Lymphocytes # 1.3 10*3/uL (1.4-4.0); Lymphocytes % 16.3 % (21.3-54.2); Mean Corpuscular HGB Conc 32.9 GM/DL (32-36); Mean Corpuscular Hemoglobin 28 PG (27-34); Mean Corpuscular Volume 84.5 FL (87-102); Mean Platelet Volume 9.7 FL (9.6-12.0); Monocytes # 0.7 10*3/uL (0.11-0.8); Monocytes % 8.9 % (1.7-12.7); Neutrophils # 5.4 10*3/uL (1.4-7.4); Neutrophils % 70.1 % (38.7-73.9); Platelet Count 306 T/CUMM (130-400); Red Blood Count 3.67 MC/CUMM (3.8-5.5); Red Cell Distribution Width 19.9 % (9.3-17.3); White Blood Count 7.7 T/CUMM (4-12)
[2017-09-04 05:26] LABS: Calcium 7.8 MG/DL (8.5-10.1); Osmolality,Calculated 264.7 MOS/KG (273-304); Potassium 4.2 MMOL/L (3.5-5.1)
[2017-09-04] MEDS: LOSARTAN 50 MG TABLET PO SCH (09:28)
[2017-09-04] MEDS: CLOPIDOGREL 75 MG TABLET PO SCH (09:28)
[2017-09-04] MEDS: CIPROFLOXACIN 250 MG TABLET PO SCH ×2 (09:28→20:58)
[2017-09-04] MEDS: FUROSEMIDE 20 MG TABLET PO SCH (09:28)
[2017-09-04] MEDS: ISOSORBIDE MONONITRATE 30 MG TABLET PO SCH (09:28)
[2017-09-04] MEDS: POTASSIUM CHLORIDE 20 MEQ TABLET PO SCH ×2 (09:28→20:58)
[2017-09-04] MEDS: PANTOPRAZOLE 40 MG TABLET PO SCH ×2 (09:28→20:58)
[2017-09-04] MEDS: CARVEDILOL 6.25 MG TABLET PO SCH ×2 (10:11→20:58)
[2017-09-04] MEDS: MULTIVITAMIN (INTRINSIC) CAPSULE PO SCH (11:44)
[2017-09-04] MEDS: ATORVASTATIN 80 MG TABLET PO SCH (20:58)
[2017-09-05 05:06] LABS: Basophils # 0.1 10*3/uL (0.0-0.2); Basophils % 0.8 % (0.0-0.8); Eosinophils # 0.4 10*3/uL (0.0-0.87); Eosinophils % 4.7 % (0.00-10.9); Hematocrit 30.6 VOL% (35.7-47.0); Hemoglobin 9.8 GM/DL (12.0-16.0); Immature Granulocytes % 0.5 %; Immature Granulocytes Absolute 0.04 #; Lymphocytes # 1.1 10*3/uL (1.4-4.0); Lymphocytes % 15.3 % (21.3-54.2); Mean Corpuscular Hemoglobin 28 PG (27-34); Mean Corpuscular Volume 85.7 FL (87-102); Mean Platelet Volume 9.9 FL (9.6-12.0); Monocytes # 0.7 10*3/uL (0.11-0.8); Monocytes % 9.2 % (1.7-12.7); Neutrophils # 5.1 10*3/uL (1.4-7.4); Neutrophils % 69.5 % (38.7-73.9); Platelet Count 336 T/CUMM (130-400); Red Blood Count 3.57 MC/CUMM (3.8-5.5); Red Cell Distribution Width 20.3 % (9.3-17.3); White Blood Count 7.4 T/CUMM (4-12)
[2017-09-05 05:35] LABS: Calcium 7.7 MG/DL (8.5-10.1); Osmolality,Calculated 264.7 MOS/KG (273-304); Potassium 4.3 MMOL/L (3.5-5.1)
[2017-09-05] MEDS: CIPROFLOXACIN 250 MG TABLET PO SCH ×2 (08:26→21:24)
[2017-09-05] MEDS: LOSARTAN 50 MG TABLET PO SCH (08:26)
[2017-09-05] MEDS: PANTOPRAZOLE 40 MG TABLET PO SCH ×2 (08:26→21:24)
[2017-09-05] MEDS: FUROSEMIDE 20 MG TABLET PO SCH (08:27)
[2017-09-05] MEDS: POTASSIUM CHLORIDE 20 MEQ TABLET PO SCH ×2 (08:27→21:24)
[2017-09-05] MEDS: CARVEDILOL 6.25 MG TABLET PO SCH ×2 (08:27→21:24)
[2017-09-05] MEDS: CLOPIDOGREL 75 MG TABLET PO SCH (08:27)
[2017-09-05] MEDS: ISOSORBIDE MONONITRATE 30 MG TABLET PO SCH (08:27)
[2017-09-05] MEDS: MULTIVITAMIN (INTRINSIC) CAPSULE PO SCH (08:27)
[2017-09-05] MEDS ORDERED: ZALEPLON 5 MG CAPSULE PO PRN (12:28)
[2017-09-05] MEDS ORDERED: BISACODYL 5 MG TABLET PO PRN (12:28)
[2017-09-05] MEDS: ATORVASTATIN 80 MG TABLET PO SCH (21:24)
[2017-09-06 05:38] LABS: Basophils # 0.1 10*3/uL (0.0-0.2); Basophils % 0.9 % (0.0-0.8); Eosinophils # 0.4 10*3/uL (0.0-0.87); Eosinophils % 6.3 % (0.00-10.9); Hemoglobin 9.3 GM/DL (12.0-16.0); Immature Granulocytes % 0.5 %; Immature Granulocytes Absolute 0.03 #; Lymphocytes % 17.8 % (21.3-54.2); Mean Corpuscular HGB Conc 32.1 GM/DL (32-36); Mean Corpuscular Hemoglobin 28 PG (27-34); Mean Corpuscular Volume 87.6 FL (87-102); Mean Platelet Volume 10.1 FL (9.6-12.0); Monocytes # 0.6 10*3/uL (0.11-0.8); Monocytes % 10.6 % (1.7-12.7); Neutrophils # 3.7 10*3/uL (1.4-7.4); Neutrophils % 63.9 % (38.7-73.9); Platelet Count 326 T/CUMM (130-400); Red Blood Count 3.31 MC/CUMM (3.8-5.5); Red Cell Distribution Width 20.5 % (9.3-17.3); White Blood Count 5.8 T/CUMM (4-12)
[2017-09-06 06:22] LABS: Calcium 7.7 MG/DL (8.5-10.1); Osmolality,Calculated 264.7 MOS/KG (273-304); Potassium 4.4 MMOL/L (3.5-5.1)
[2017-09-06] MEDS: LOSARTAN 50 MG TABLET PO SCH (08:12)
[2017-09-06] MEDS: MULTIVITAMIN (INTRINSIC) CAPSULE PO SCH (08:12)
[2017-09-06] MEDS: CLOPIDOGREL 75 MG TABLET PO SCH (08:13)
[2017-09-06] MEDS: CIPROFLOXACIN 250 MG TABLET PO SCH ×2 (08:13→21:02)
[2017-09-06] MEDS: ISOSORBIDE MONONITRATE 30 MG TABLET PO SCH (08:13)
[2017-09-06] MEDS: FUROSEMIDE 20 MG TABLET PO SCH (08:13)
[2017-09-06] MEDS: POTASSIUM CHLORIDE 20 MEQ TABLET PO SCH ×2 (08:13→21:02)
[2017-09-06] MEDS: PANTOPRAZOLE 40 MG TABLET PO SCH ×2 (08:13→21:02)
[2017-09-06] MEDS: CARVEDILOL 6.25 MG TABLET PO SCH ×2 (08:13→21:02)
[2017-09-06 12:18] LABS: Bilirubin,Direct 0.3 MG/DL (0.0-0.20); Bilirubin,Indirect 0.2 MG/DL (0.0-1.0); Bilirubin,Total 0.5 MG/DL (0.2-1.0); Total Protein 5.6 G/DL (6.4-8.3)
[2017-09-06 17:10] LABS: Hepatitis A Ab IgM Quant 0.12 Index; Hepatitis A Ab IgM Result Negative (Negative); Hepatitis B Core IgM Quant 0.17 Index; Hepatitis B Core IgM Result Negative (Negative); Hepatitis B Surface Ag Quant < 0.10 Index; Hepatitis B Surface Ag Result Negative (Negative); Hepatitis C Virus Ab Quant 0.13 Index; Hepatitis C Virus Ab Result Negative (Negative)
[2017-09-06] MEDS: ATORVASTATIN 80 MG TABLET PO SCH (21:02)
[2017-09-07 07:07] LABS: Basophils # 0.1 10*3/uL (0.0-0.2); Basophils % 0.8 % (0.0-0.8); Eosinophils # 0.3 10*3/uL (0.0-0.87); Eosinophils % 4.5 % (0.00-10.9); Hematocrit 29.4 VOL% (35.7-47.0); Hemoglobin 9.2 GM/DL (12.0-16.0); Immature Granulocytes % 0.4 %; Immature Granulocytes Absolute 0.03 #; Lymphocytes % 13.5 % (21.3-54.2); Mean Corpuscular HGB Conc 31.3 GM/DL (32-36); Mean Corpuscular Hemoglobin 28 PG (27-34); Mean Corpuscular Volume 88.6 FL (87-102); Monocytes # 0.7 10*3/uL (0.11-0.8); Monocytes % 9.6 % (1.7-12.7); Neutrophils # 5.2 10*3/uL (1.4-7.4); Neutrophils % 71.2 % (38.7-73.9); Platelet Count 350 T/CUMM (130-400); Red Blood Count 3.32 MC/CUMM (3.8-5.5); Red Cell Distribution Width 20.9 % (9.3-17.3); White Blood Count 7.3 T/CUMM (4-12)
[2017-09-07 07:39] LABS: Calcium 7.9 MG/DL (8.5-10.1); Osmolality,Calculated 262.8 MOS/KG (273-304); Potassium 4.2 MMOL/L (3.5-5.1)
[2017-09-07] MEDS: POTASSIUM CHLORIDE 20 MEQ TABLET PO SCH (09:47)
[2017-09-07] MEDS: CARVEDILOL 6.25 MG TABLET PO SCH (09:47)
[2017-09-07] MEDS: MULTIVITAMIN (INTRINSIC) CAPSULE PO SCH (09:47)
[2017-09-07] MEDS: LOSARTAN 50 MG TABLET PO SCH (09:47)
[2017-09-07] MEDS: CLOPIDOGREL 75 MG TABLET PO SCH (09:48)
[2017-09-07] MEDS: CIPROFLOXACIN 250 MG TABLET PO SCH (09:48)
[2017-09-07] MEDS: ISOSORBIDE MONONITRATE 30 MG TABLET PO SCH (09:48)
[2017-09-07] MEDS: FUROSEMIDE 20 MG TABLET PO SCH (09:48)
[2017-09-07] MEDS: PANTOPRAZOLE 40 MG TABLET PO SCH (09:48)
[2017-09-07 13:40] VITALS: BP 104/56
== END 2017-09-07 13:55 | disposition swing bed (61) | DRG 249 ==
LOC: N.CL 07:50 → EDSTATUS 11:00 → N.CC 12:40 → N.TELEN 08-25 10:57 → N.ICU 08-31 09:00 → N.TELEN 09-01 14:11
PROVIDERS: ADMIT Internal Medicine Cardiovascular Disease; ATTEND Internal Medicine Cardiovascular Disease
PROC: CLCCHCL (ICD-10-PCS; 2017-08-23 11:15)
PROC: [UNRECOGNIZED PROCEDURE] (2017-08-28 10:45)